=== PATIENT | male | born 1980 | race American Indian/Alaskan Native ===

== ENCOUNTER 2017-02-22 01:40 | Emergency (ER) | payer OTHER ==
[2017-02-22 02:21] LABS: BASO # 0.1 K/uL (0.0-0.2); BASO % 0.7 % (0.0-2.0); EOS # 0.1 K/uL (0.0-0.7); EOS % 0.7 % (0.0-4.0); HEMOGLOBIN 14.7 g/dL (12.0-18.0); LYMPH # 2.1 K/uL (1.0-4.3); LYMPH % 25.8 % (20.0-40.0); MEAN CELL VOLUME 88.9 fL (80.0-94.0); MEAN CORPUSCULAR HEMOGLOBIN 30.3 pg (27.0-31.0); MEAN CORPUSCULAR HGB CONC 34.1 g/dL (33.0-37.0); MEAN PLATELET VOLUME 7.3 fL (7.2-11.7); MONO # 0.7 K/uL (0.0-0.8); NEUT # 5.1 K/uL (1.8-7.0); NEUT % 63.8 % (50.0-75.0); RBC 4.87 Mil/uL (4.40-5.90); RED CELL DISTRIBUTION WIDTH 12.8 % (11.5-14.5); WHITE BLOOD COUNT 7.9 K/uL (4.8-10.8)
[2017-02-22 02:29] LABS: ALBUMIN 4.6 g/dL (3.5-5.0); ALT/SGPT 36 U/L (21-72); AST/SGOT 43 U/L (17-59); BLOOD UREA NITROGEN 18 mg/dL (9-20); CALCIUM 9.1 mg/dl (8.6-10.4); GFR AFRICAN-AMERICAN > 60; GFR NON-AFRICAN AMERICAN > 60
[2017-02-22 02:30] LABS: ACETAMINOPHEN < 10.0 ug/mL (10.0-30.0); SALICYLATE < 1.0 mg/dL 1
[2017-02-22 02:34] LABS: ALB/GLOB RATIO 1.2 (1.0-2.1)
--- NOTE | 2017-02-22 06:35 | C.PDOC ---
History Of Present Illness 36 y/o male is brought to the ED by police for evaluation after patient attempted to break into [employer] prior to arrival. Patient denies suicidal/ homicidal ideation at this time and has no other complaints. Time Seen by Provider: 02/22/17 02:21 Chief Complaint (Nursing): Psychiatric Evaluation History Per: Patient History/Exam Limitations: no limitations Onset/Duration Of Symptoms: Hrs Current Symptoms Are (Timing): Still Present Suicide/Self Injury Attempted (Context): None Modifying Factor(s): None Severity: None Associated Symptoms: denies: Suicidal Thoughts, Suicidal Plan Involuntary Hold By: None Recent travel outside of the [place]: No Additional History Per: Patient, Law Enforcement Past Medical History Reviewed: Historical Data, Nursing Documentation, Vital Signs Vital Signs: Last Vital Signs Temp 97.6 F 02/22/17 06:36 Pulse 61 02/22/17 06:36 Resp 16 02/22/17 06:36 BP 137/77 02/22/17 06:36 Pulse Ox 99 02/22/17 06:53 - Medical History PMH: No Chronic Diseases Surgical History: No Surg Hx Family History: States: Unknown Family Hx - Social History Hx Alcohol Use: No Hx Substance Use: No - Immunization History Hx Tetanus Toxoid Vaccination: No Hx Influenza Vaccination: No Hx Pneumococcal Vaccination: No Review Of Systems Psych: Negative for: Suicidal ideation Physical Exam - Physical Exam Appears: Non-toxic, No Acute Distress, Other (agitated, talking to himself) Skin: Normal Color, Warm, Dry Oral Mucosa: Moist Neck: Supple Chest: Symmetrical, No Tenderness Cardiovascular: Rhythm Regular, No Murmur Respiratory: Normal Breath Sounds Extremity: Normal ROM, Capillary Refill (less than 2 seconds ) Neurological/Psych: Other (flat affect) Gait: Steady ED Course And Treatment - Laboratory Results Result Diagrams: 02/22/17 02:14 02/22/17 02:14 ECG: Interpreted By Me, Viewed By Me ECG Rhythm: Sinus Rhythm Interpretation Of ECG: NSR at [address] changes. Rate From EC O2 Sat by Pulse Oximetry: 99 (on RA) Pulse Ox Interpretation: Normal Progress Note: Bloodwork, UA, CXR, EKG ordered and reviewed. Ativan PO administered. Patient was evaluated by Kenan (wafer production worker), who advised [facility] screening. 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 - Scribe Statement The provider has reviewed the documentation as recorded by the Scribe (Cleo Garcia) All medical record entries made by the Scribe were at my direction and personally dictated by me. I have reviewed the chart and agree that the record accurately reflects my personal performance of the history, physical exam, medical decision making, and the department course for this patient. I have also personally directed, reviewed, and agree with the discharge instructions and disposition. Physician Patient Turnover Patient Signed Over To: Ros Martinez Handoff Comments: Pending [facility] screener
[2017-02-22 08:33] LABS: URINE BILIRUBIN NEGATIVE (NEGATIVE); URINE BLOOD NEGATIVE (NEGATIVE); URINE CLARITY Clear (Clear); URINE COLOR Yellow (YELLOW); URINE GLUCOSE (UA) NORMAL (Normal); URINE LEUKOCYTE ESTERASE NEG Leu/uL (Negative); URINE NITRATE NEGATIVE (NEGATIVE); URINE PROTEIN NEGATIVE (NEGATIVE)
[2017-02-22 08:38] LABS: BARBITURATES, UR NEGATIVE (NEGATIVE); BENZODIAZEPINES, UR NEGATIVE (NEGATIVE); OPIATES, UR NEGATIVE (NEGATIVE); PHENCYCLIDINE, UR NEGATIVE (NEGATIVE)
--- NOTE | 2017-02-22 11:45 | RAD ---
HISTORY: for clearance to psych COMPARISON: None available. TECHNIQUE: Chest, one view. FINDINGS: LUNGS: No focal consolidation. Please note that chest x-ray has limited sensitivity for the detection of pulmonary masses. PLEURA: No significant pleural effusion identified. No definite pneumothorax . CARDIOVASCULAR: The cardiomediastinal silhouette appears within normal limits of size. OSSEOUS STRUCTURES: No acute osseous abnormality identified. VISUALIZED UPPER ABDOMEN: Unremarkable. OTHER FINDINGS: None. IMPRESSION: No acute findings identified.
--- NOTE | 2017-02-22 12:48 | PCM.PSYCH ---
Initial Psychiatric Evaluation - Initial Psychiatric Evaluation Type of Admission: Involuntary Chief Complaint (in patient's own words): "I'm hungry" History of Present Illness and Precipitating Events: Pt is seen, chart reviewed and case discussed. He is awaiting [facility] screening. Consult was requested for his agitation and bizarre bhv. He denies any psych sxs now and refuses meds He is also refusing to answer most of the questions and simply says "no" to pretty much any question. This is from the crisis eval early this morning: "36yo -[place] man BIB [facility] after being found attempting to break into a [employer] restaurant; Attepmted to assess Pt, who pesented the following : upon entering Pt's ED room, Pt was observed actively hallucinating (looking and speaking to someone who was not actually present); Pt made the following hallucinatory statements: "I know you there;" That's it;" That's right there;" That's it;" It's gone;" I'm not moving this arm;" That's it;" I'm not moving this arm;" Your pausing;" That it's;" Pt spoke in a very disorganized/agitated manner" Past psych hx: Schizophrenia likely but refuses to answer Medical hx: unknown Family psych hx: Unknown Past Psychiatric History - Past Psychiatric History Pertinent Medical Hx (Current Medical&Sleep Prob, Allergies): Allergies Allergy/AdvReac Type Severity Reaction Status Date / Time No Known Allergies Allergy Verified 02/22/17 02:02 No Known Home Med 02/22/17 Review of Systems - Neurological Neurological: UNREMARKABLE - Psychiatric Psychiatric: Abnormal Sleep Pattern, Irritability, Paranoia. absent: Homicidal Ideation, Suicidal Ideation Mental Status Examination - Personal Presentation Personal Presentation: Looks older than stated age - Affect Affect: Blunted - Motor Activity Motor Activity: Psychomotor Agitation (easily) - Reliability in Providing Information Reliability in Providing Information: Poor, due to alteration in thoughts, Poor , due to altered mood - Speech Speech: Disorganized - Mood Mood: Other (irate) - Formal Thought Process Formal Thought Process: Delusions, Paranoia, Loosening of associations - Cognitive Functions Orientation: Person, Place, Time Sensorium: Drowsy Attention/Concentration: Easily distracted Abstract Thinking: [place] Estimate of Intelligence: Below average Judgement: Imparied, as evidence by: Poor judgement Memory: Recent impaired, as evidence by: Inability to recall events of the day, Remote impaired as evidenced by: Inability to recall sig life events - Risk Risk: Diminished functioning DSM 5 DX - DSM 5 DSM 5 Diagnosis: Chronic schizophrenia - acute exacerbation - Recommended/Plan of Treatment Treatment Recommendations and Plan of Treatment: prn haldol/ativan Seroquel 100 mg HS for sleep if he takes [facility] screening for invol admission 31 min
[2017-02-22 20:35] VITALS: RESP 16
[2017-02-23 00:31] VITALS: BP 128/59; PULSE 71; TEMP 98.3; O2SAT 99
--- NOTE | 2017-02-23 11:54 | CARD ---
APPROVED REPORT EKG Measurement Heart [id number] <Conclusion> Normal sinus rhythm Normal ECG
== END 2017-02-23 00:47 | disposition short-term general hospital (02) ==
LOC: C.ER 01:40
DX: F20.9 Schizophrenia, unspecified (principal)